=== PATIENT | male | born 1940 | race Asian ===

== ENCOUNTER → 2017-01-30 | Outpatient (CLI) | payer OTHER ==
[~2017-01-30] MED LIST: CLON-570 PO; LISI-661 PO; METO50 PO
== END | disposition home or self-care (01) ==
LOC: RADPV 13:15
PROVIDERS: ATTEND Internal Medicine
DX: I13.0 Hypertensive heart and chronic kidney disease with heart failure and stage 1 through stage 4 chronic kidney disease, or unspecified chronic kidney disease (principal); N18.9 Chronic kidney disease, unspecified; I50.20 Unspecified systolic (congestive) heart failure; I70.0 Atherosclerosis of aorta; N40.0 Benign prostatic hyperplasia without lower urinary tract symptoms
CPT/HCPCS: 71020; 76770

== ENCOUNTER 2017-02-10 15:17 | Emergency (ER) | payer OTHER ==
[~2017-02-10] VITALS: Ht 170.2 cm; Wt 72.7 kg
[2017-02-10] MEDS ORDERED: NITROGLYCERIN 2% (1 GM=INCH) PACKET TP ONE (16:30)
[2017-02-10 16:39] LABS: BASOPHILS % (AUTO) 0.3 % (0.0-2.0); EOSINOPHILS % (AUTO) 10.4 % (1.0-6.0); HEMATOCRIT 35.9 % (41-53); HEMOGLOBIN 11.4 g/dL (13.5-17.5); LYMPHOCYTES # (AUTO) 1.6 K/uL (1.0-4.8); LYMPHOCYTES % (AUTO) 26.3 % (22.0-44.0); MEAN CORPUSCULAR HEMOGLOBIN 20.8 pg (26.0-34.0); MEAN CORPUSCULAR HGB CONC 31.8 G/dL (31.0-37.0); MEAN CORPUSCULAR VOLUME 65 fL (80-100); MONOCYTES # (AUTO) 0.9 K/uL (0.1-1.0); MONOCYTES % (AUTO) 15.2 % (2.0-9.0); NEUTROPHILS # (AUTO) 2.8 K/uL (1.8-7.7); NEUTROPHILS % (AUTO) 47.8 % (40.0-70.0); PLATELET COUNT (AUTO) 225 K/uL (150-450); RED BLOOD CELL COUNT(AUTO) 5.49 MIL/uL (4.50-5.90); RED CELL DISTRIBUTION WIDTH 15.6 % (11.5-14.5); WHITE BLOOD COUNT (AUTO) 5.9 K/uL (4.5-11.0)
[2017-02-10] MEDS ORDERED: ASPIRIN 81 MG CHEWABLE TABLET PO ONE (16:45)
[2017-02-10 17:17] LABS: CALCIUM, TOTAL 8.5 mg/dL (8.8-10.5); CREATININE 1.89 mg/dL (0.60-1.30)
[2017-02-10 17:42] LABS: ALBUMIN 3.7 g/dL (3.4-5.0); BILIRUBIN,TOTAL 0.4 mg/dL (0.1-1.0); CREATINE KINASE MB 11.8 ng/mL (0-5); TOTAL PROTEIN, SERUM 7.1 g/dL (6.4-8.2)
[2017-02-10 17:52] LABS: RBC MORPHOLOGY COMMENT ABNORMAL RBC MORPH
[2017-02-10 17:58] LABS: APPEARANCE,URINE CLEAR (CLEAR); GLUCOSE, URINE (UA) NEGATIVE (NEGATIVE); KETONES,URINE NEGATIVE (NEGATIVE); LEUKOCYTE ESTERASE ,URINE NEGATIVE (NEGATIVE); OCCULT BLOOD,URINE NEGATIVE (NEGATIVE); PROTEIN,URINE NEGATIVE (NEGATIVE)
[2017-02-10 18:04] VITALS: BP 111/69
[2017-02-10 18:10] LABS: ADD UA MICROSCOPIC NO
[2017-02-10] MEDS ORDERED: FUROSEMIDE 40 MG/4 ML VIAL IVP ONE (18:15)
[2017-02-10] MEDS ORDERED: SODIUM CHLORIDE 0.9% 1,000 ML IV ONE (18:30)
[2017-02-10] MEDS ORDERED: INSULIN REGULAR, HUMAN 100 UNITS/ML IVP ONE (18:30)
== END 2017-02-10 19:01 | disposition home or self-care (01) ==
LOC: EMS 15:18
DX: I35.0 Nonrheumatic aortic (valve) stenosis (principal); R60.9 Edema, unspecified; I13.0 Hypertensive heart and chronic kidney disease with heart failure and stage 1 through stage 4 chronic kidney disease, or unspecified chronic kidney disease; N18.9 Chronic kidney disease, unspecified; I50.9 Heart failure, unspecified
CPT/HCPCS: 36415; 71010; 80053; 81003; 82550; 82553; 83880; 84484; 85025; 93005; 96374; 99285; J1940

== ENCOUNTER 2018-12-17 20:23 | Emergency (ER) | payer MEDICARE, OTHER ==
[~2018-12-17] VITALS: Ht 167.6 cm; Wt 64.5 kg
[2018-12-17 22:10] LABS: BASOPHILS % (AUTO) 0.6 % (0.0-2.0); EOSINOPHILS % (AUTO) 9.6 % (1.0-6.0); HEMATOCRIT 39.9 % (41-53); HEMOGLOBIN 12.2 g/dL (13.5-17.5); LYMPHOCYTES # (AUTO) 1.5 K/uL (1.0-4.8); LYMPHOCYTES % (AUTO) 21.6 % (22.0-44.0); MEAN CORPUSCULAR HEMOGLOBIN 20.6 pg (26.0-34.0); MEAN CORPUSCULAR HGB CONC 30.5 G/dL (31.0-37.0); MEAN CORPUSCULAR VOLUME 68 fL (80-100); MONOCYTES # (AUTO) 0.8 K/uL (0.1-1.0); MONOCYTES % (AUTO) 10.7 % (2.0-9.0); NEUTROPHILS % (AUTO) 57.5 % (40.0-70.0); PLATELET COUNT (AUTO) 301 K/uL (150-450); RED BLOOD CELL COUNT(AUTO) 5.91 MIL/uL (4.50-5.90); RED CELL DISTRIBUTION WIDTH 16.9 % (11.5-14.5)
[2018-12-17 22:25] LABS: AMPHET/METH SCREEN,URINE NEGATIVE (NEGATIVE); BARBITURATE SCREEN, URINE NEGATIVE (NEGATIVE); BENZODIAZEPINES SCREEN,URINE NEGATIVE (NEGATIVE); CANNABINOID SCREEN,URINE NEGATIVE (NEGATIVE); COCAINE SCREEN,URINE NEGATIVE (NEGATIVE); METHADONE SCREEN, URINE NEGATIVE (NEGATIVE); OPIATE SCREEN,URINE NEGATIVE (NEGATIVE)
[2018-12-17 22:57] LABS: ANION GAP 11 mmol/L (8-16); CALCIUM, TOTAL 9.5 mg/dL (8.8-10.5); CARBON DIOXIDE 25 mmol/L (22-29); CHLORIDE 102 mmol/L (98-107); CREATININE 1.91 mg/dL (0.60-1.30); GLOMERULAR FILTR. RATE CALC 34 mL/min (>60); GLUCOSE,RANDOM 110 mg/dL (70-110); SODIUM SERUM 138 mmol/L (136-145); UREA NITROGEN, BLOOD 32 mg/dL (7-18)
[2018-12-17 22:58] LABS: PHENCYCLIDINE SCREEN,URINE NEGATIVE (NEGATIVE)
[2018-12-17 23:05] LABS: ALANINE AMINOTRANSFERASE 151 U/L (12-78); ALKALINE PHOSPHATASE 87 U/L (46-116); ASPARTATE AMINOTRANSFERASE 122 U/L (15-37); BILIRUBIN,TOTAL 0.6 mg/dL (0.1-1.0); TOTAL PROTEIN, SERUM 7.8 g/dL (6.4-8.2)
[2018-12-17 23:08] LABS: APPEARANCE,URINE CLEAR (CLEAR); BILIRUBIN,URINE NEGATIVE (NEGATIVE); GLUCOSE, URINE (UA) NEGATIVE (NEGATIVE); KETONES,URINE NEGATIVE (NEGATIVE); LEUKOCYTE ESTERASE ,URINE NEGATIVE (NEGATIVE); NITRATE,URINE NEGATIVE (NEGATIVE); OCCULT BLOOD,URINE NEGATIVE (NEGATIVE); PROTEIN,URINE POS 1+ (NEGATIVE); UROBILINOGEN,URINE 0.2 mg/dL (<=1.0)
[2018-12-17 23:21] LABS: BACTERIA,URINE None Seen /HPF (None Seen); RBC,URINE None Seen /HPF (0-2); SQUAMOUS EPITHELIAL CELL,UR Rare /LPF (None Seen); WBC,URINE 0-2 /HPF (0-5)
[2018-12-18 10:00] VITALS: BP 136/82
== END 2018-12-18 10:15 | disposition home or self-care (01) ==
LOC: EMS 20:24
DX: S00.31XA Abrasion of nose, initial encounter (principal); R45.1 Restlessness and agitation; I10 Essential (primary) hypertension; Z79.899 Other long term (current) drug therapy; W50.0XXA Accidental hit or strike by another person, initial encounter; Y93.89 Activity, other specified; Y92.89 Other specified places as the place of occurrence of the external cause; Y99.8 Other external cause status
CPT/HCPCS: 36415; 80053; 80307; 81001; 85025; 99285; G0480

== ENCOUNTER 2019-03-07 06:10 | Emergency (ER) | payer MEDICARE ==
[~2019-03-07] VITALS: Ht 170.2 cm; Wt 68.2 kg
[~2019-03-07 06:10] MED LIST changes: -CLON-570 PO; +CLON0.1T2 PO
[2019-03-07] MEDS ORDERED: ALLO100T PO (06:22)
[2019-03-07] MEDS ORDERED: COLC0.6T73 PO (06:22)
[2019-03-07] MEDS ORDERED: GABA-529 PO (06:22)
[2019-03-07] MEDS ORDERED: HYDR25TA PO (06:22)
[2019-03-07] MEDS ORDERED: AMLO5TAB9 PO (06:22)
[2019-03-07 08:45] VITALS: BP 147/86
== END 2019-03-07 08:56 | disposition home or self-care (01) ==
LOC: EMS 06:11
DX: J34.89 Other specified disorders of nose and nasal sinuses (principal); I10 Essential (primary) hypertension; M10.9 Gout, unspecified; Z79.899 Other long term (current) drug therapy

== ENCOUNTER 2020-02-18 04:37 | Emergency (ER) | payer MEDICARE ==
[~2020-02-18] VITALS: Ht 170.2 cm; Wt 76.4 kg
[~2020-02-18 04:37] MED LIST changes: +ALLO-44 PO; +AMLO-257 PO; -CLON0.1T2 PO; +COLC0.6T73 PO; +GABA-1216 PO; +HYDR-1475 PO; -LISI-661 PO; -METO50 PO
[2020-02-18] MEDS ORDERED: APIX2.5T PO (04:45)
[2020-02-18] MEDS ORDERED: ATOR10TA84 PO (04:45)
[2020-02-18] MEDS ORDERED: HYDR10TA31 PO (04:45)
[2020-02-18 05:23] LABS: HEMATOCRIT 44.3 % (41-53); HEMOGLOBIN 14.1 g/dL (13.5-17.5); MEAN CORPUSCULAR HGB CONC 31.9 G/dL (31.0-37.0); MEAN CORPUSCULAR VOLUME 69 fL (80-100); PLATELET COUNT (AUTO) 215 K/uL (150-450); RED BLOOD CELL COUNT(AUTO) 6.42 MIL/uL (4.50-5.90); RED CELL DISTRIBUTION WIDTH 16.7 % (11.5-14.5)
[2020-02-18 05:28] LABS: CALCIUM, TOTAL 9.5 mg/dL (8.8-10.5); CREATININE 1.75 mg/dL (0.60-1.30); POTASSIUM 4.2 mmol/L (3.5-5.1)
[2020-02-18 05:35] LABS: ALBUMIN 4.2 g/dL (3.4-5.0); BILIRUBIN,TOTAL 0.6 mg/dL (0.1-1.0); TOTAL PROTEIN, SERUM 7.9 g/dL (6.4-8.2)
[2020-02-18] MEDS ORDERED: ACETAMINOPHEN 325 MG TABLET PO ONE (05:45)
[2020-02-18 06:12] LABS: BAND NEUTROPHILS % (MANUAL) 2 % (0-5); EOSINOPHILS % (MANUAL) 17 % (1-6); LYMPHOCYTES % (MANUAL) 33 % (22-44); MONOCYTES % (MANUAL) 10 % (2-9); SEGMENTED NEUTROPHILS % 38 % (40-70)
[2020-02-18] MEDS ORDERED: DiphenhydrAMINE HCL 50 MG/ML VIAL IVP ONE (06:45)
[2020-02-18] MEDS ORDERED: METOCLOPRAMIDE HCL 5 MG/ML 2 ML VIAL IVP ONE (06:45)
[2020-02-18] MEDS ORDERED: KETOROLAC TROMETHAMINE 30 MG/ML VIAL IVP ONE (06:45)
[2020-02-18] MEDS ORDERED: SODIUM CHLORIDE 0.9% 1,000 ML IV ONE (06:45)
[2020-02-18] MEDS ORDERED: DEXAMETHASONE SOD PHOS 4 MG/ML 5 ML VIAL IVP ONE (06:45)
[2020-02-18] MEDS ORDERED: IOVERSOL 350 MG/ML 150 ML VIAL ONE (07:31)
[2020-02-18 10:51] VITALS: BP 171/90
== END 2020-02-18 12:07 | disposition home or self-care (01) ==
LOC: EMS 04:37
DX: I66.02 Occlusion and stenosis of left middle cerebral artery (principal); R51.9 Headache, unspecified; I10 Essential (primary) hypertension
CPT/HCPCS: 36415; 70450; 70496; 70498; 71275; 80053; 85025; 96361; 96374; 96375; 99285; J1100; J1200; J1885; J2765; J7030; Q9967

== ENCOUNTER 2021-10-21 12:00 | Emergency (ER) | payer MEDICARE, MEDICAID ==
[~2021-10-21] VITALS: Ht 167.6 cm; Wt 63.6 kg
[~2021-10-21 12:00] MED LIST changes: -ALLO-44 PO; +ALLO-97 PO; +APIX2.5T PO; +ATOR10TA84 PO; -HYDR-1475 PO; +HYDR10TA31 PO; +HYDR25TA2 PO
[2021-10-21] MEDS ORDERED: CARV3 PO (12:31)
[2021-10-21] MEDS ORDERED: COLC0.6C PO (15:55)
[2021-10-21] MEDS ORDERED: MEMA5TAB42 PO (15:55)
[2021-10-21] MEDS ORDERED: ESCI10 PO (15:55)
[2021-10-21] MEDS ORDERED: ATOR40TA71 PO (15:55)
[2021-10-21] MEDS ORDERED: AMLO10TA55 PO (15:55)
[2021-10-21] MEDS ORDERED: ACETAMINOPHEN 500 MG TABLET PO ONE (16:00)
[2021-10-21 17:50] VITALS: BP 160/86
== END 2021-10-21 17:56 | disposition home or self-care (01) ==
LOC: EMS 12:00
DX: R51.9 Headache, unspecified (principal); I10 Essential (primary) hypertension; M10.9 Gout, unspecified; I35.0 Nonrheumatic aortic (valve) stenosis; N18.9 Chronic kidney disease, unspecified
CPT/HCPCS: 70470; 99284; Z7502; Z7610

== ENCOUNTER 2022-03-23 13:52 | Emergency (ER) | payer MEDICAID, MEDICARE ==
[~2022-03-23] VITALS: Ht 167.6 cm; Wt 77.3 kg
[~2022-03-23 13:52] MED LIST changes: -AMLO-257 PO; +AMLO10TA55 PO; -ATOR10TA84 PO; +ATOR40TA71 PO; +CARV3 PO; +COLC0.6C PO; -COLC0.6T73 PO; +ESCI10 PO; -HYDR10TA31 PO; +MEMA5TAB42 PO
[2022-03-23 13:55] VITALS: BP 162/83
[2022-03-23 15:11] LABS: BASOPHILS % (AUTO) 0.6 % (0.0-2.0); COVID AG,FIA SOURCE NASAL SWAB; HEMATOCRIT 39.1 % (41-53); HEMOGLOBIN 12.4 g/dL (13.5-17.5); LYMPHOCYTES # (AUTO) 1.8 K/uL (1.0-4.8); LYMPHOCYTES % (AUTO) 21.2 % (22.0-44.0); MEAN CORPUSCULAR HEMOGLOBIN 21.4 pg (26.0-34.0); MEAN CORPUSCULAR HGB CONC 31.7 G/dL (31.0-37.0); MEAN CORPUSCULAR VOLUME 67 fL (80-100); MONOCYTES # (AUTO) 0.8 K/uL (0.1-1.0); MONOCYTES % (AUTO) 9.8 % (2.0-9.0); NEUTROPHILS # (AUTO) 4.5 K/uL (1.8-7.7); NEUTROPHILS % (AUTO) 52.2 % (40.0-70.0); PLATELET COUNT (AUTO) 235 K/uL (150-450)
[2022-03-23 15:15] LABS: EOSINOPHILS % (AUTO) 16.2 % (1.0-6.0)
[2022-03-23 15:22] LABS: SALICYLATE < 0.2 mg/dL (2.8-20.0)
[2022-03-23 15:23] LABS: ANION GAP 11 mmol/L (8-16); CALCIUM, TOTAL 9.6 mg/dL (8.8-10.5); CARBON DIOXIDE 23 mmol/L (22-29); CHLORIDE 106 mmol/L (98-107); CREATININE 1.27 mg/dL (0.60-1.30); GLUCOSE,RANDOM 99 mg/dL (70-110); POTASSIUM 5.5 mmol/L (3.5-5.1); SODIUM SERUM 140 mmol/L (136-145); UREA NITROGEN, BLOOD 26 mg/dL (7-18)
[2022-03-23 15:25] LABS: GLOMERULAR FILTR. RATE CALC 55 mL/min (>60)
[2022-03-23 15:29] LABS: ALANINE AMINOTRANSFERASE 131 U/L (12-78); ALBUMIN 3.8 g/dL (3.4-5.0); ALKALINE PHOSPHATASE 104 U/L (46-116); BILIRUBIN,TOTAL 0.9 mg/dL (0.1-1.0); TOTAL PROTEIN, SERUM 7.8 g/dL (6.4-8.2)
[2022-03-23 15:31] LABS: INFLUENZA TYPE A NEGATIVE FOR TYPE A (NEGATIVE); INFLUENZA TYPE B NEGATIVE FOR TYPE B (NEGATIVE)
[2022-03-23 15:34] LABS: B-TYPE NATRIURETIC PEPTIDE 267 pg/mL (0-100)
[2022-03-23 15:42] LABS: ASPARTATE AMINOTRANSFERASE 130 U/L (15-37)
[2022-03-23] MEDS ORDERED: MethylPREDNISolone SOD SUCC 125 MG/2 ML VIAL IVP ONE (16:00)
[2022-03-23] MEDS ORDERED: ALBUTEROL SULFATE 2.5 MG/0.5 ML NEB SOLUTION NEB ONE (16:00)
[2022-03-23] MEDS ORDERED: IPRATROPIUM BROMIDE 0.5 MG/2.5 ML NEB SOLUTION NEB ONE (16:00)
[2022-03-23] MEDS ORDERED: ACETAMINOPHEN 325 MG TABLET PO ONE (17:00)
[2022-03-23] MEDS ORDERED: AZIT250T9 PO (17:02)
[2022-03-23] MEDS ORDERED: PRED-554 PO (17:03)
[2022-03-23] MEDS ORDERED: ALBU8HFA IH (17:04)
[2022-03-23] MEDS ORDERED: HYDR25TA84 PO (17:07)
[2022-03-23] MEDS ORDERED: LISI40TA9 PO (17:07)
[2022-03-23] MEDS ORDERED: LEVO5TAB13 PO (17:07)
[2022-03-23] MEDS ORDERED: FLUO15CR TP (17:07)
[2022-03-23] MEDS ORDERED: NITR30OI6 PR (17:13)
[2022-03-23] MEDS ORDERED: AZITHROMYCIN 500 MG/NS 250 ML IV ONE (17:15)
[2022-03-23] MEDS ORDERED: ALBUTEROL SULFATE HFA 90 MCG/PUFF 8 GM INHALER IH ONE (17:15)
== END 2022-03-23 17:55 | disposition home or self-care (01) ==
LOC: EMS 13:59
DX: J44.1 Chronic obstructive pulmonary disease with (acute) exacerbation (principal); I35.0 Nonrheumatic aortic (valve) stenosis; I10 Essential (primary) hypertension; Z87.891 Personal history of nicotine dependence; Z20.822 Contact with and (suspected) exposure to COVID-19
CPT/HCPCS: 99285; 96374; 71045; 87426; 80053; 83880; 84484; 85025; 87804; 36415; 94640; 93005; G0480; J2930; J3535; J7613